=== PATIENT | female | born 1950 | race Caucasian/White ===

== ENCOUNTER 2017-06-07 14:58 | Outpatient (CLI) | payer BC ==
[~2017-06-07] VITALS: Ht 162.6 cm; Wt 70.3 kg
[2017-06-07 15:05] VITALS: BP 125/72
== END 2017-06-07 15:18 | disposition home or self-care (01) ==
LOC: PREOP 14:58
PROVIDERS: ATTEND Orthopaedic Surgery
DX: Z01.818 Encounter for other preprocedural examination (principal); M94.262 Chondromalacia, left knee
CPT/HCPCS: 87081

== ENCOUNTER 2017-06-12 08:08 | Day surgery (SDC) | payer BC ==
--- NOTE | 2017-06-05 09:18 | HISTORY AND PHYSICAL ---
DATE OF SERVICE: LAST- SOCIAL SECURITY: 2087 REASON FOR ADMISSION: This will be for outpatient surgery on 06/12/2017 for left knee arthroscopy. HISTORY OF PRESENT ILLNESS: The patient is a 66-year-old female with progressively worsening left knee pain. She reports pain anteriorly. She reports catching, locking, and swelling. She reports difficulty with stairs. She has undergone injections, which alleviated her pain symptoms temporarily. Due to functional impairment and failure to improve with conservative measures, the patient has elected to proceed with surgical intervention. REVIEW OF SYSTEMS: No chest pain, no shortness of breath, no dysuria. PAST MEDICAL HISTORY: Unremarkable. PAST SURGICAL HISTORY: Right knee arthroscopy. FAMILY HISTORY: Noncontributory. PRIMARY CARE PROVIDER: Dr. Alfonso. MEDICATIONS: Denies. ALLERGIES: No known drug allergies. SOCIAL HISTORY: The patient drinks alcohol socially. She denies tobacco use. PHYSICAL EXAMINATION: GENERAL: The patient is well-developed, well-nourished, in no acute distress. HEENT: Normocephalic, atraumatic. Pupils are equal, round and reactive to light. Oropharynx is clear. NECK: Supple. No lymphadenopathy. LUNGS: Clear to auscultation bilaterally. HEART: Regular rate and rhythm. ABDOMEN: Soft, nontender, nondistended. EXTREMITIES: The left knee demonstrates marked patellofemoral crepitus. She has large effusion. She has pain with patellar loading. She ambulates with an antalgic gait. Range of motion 0/0/135. 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 PLAN: Left knee arthroscopy and chondroplasty of the patellofemoral joint. The risks, benefits, options, ramifications and recovery have been discussed at length with the patient. She understands and wishes to proceed. Job ID: [id number] DocumentID: [id number] Dictated Date: 06/04/2017 11:56:29 Caustic Pump Operator Date: 06/04/2017 13:16:44 Dictated By: LULY MARTINEZ MD
[~2017-06-12] VITALS: Ht 162.6 cm; Wt 70.3 kg
[~2017-06-12 08:08] MED LIST: BUPIVACAINE 0.25% 30 ML (SENSORCAINE) VIAL ONE; morphine PF (DURAMORPH) 10 MG/10 ML AMP ONE
--- OUTSIDE RECORDS SUMMARY | 2017-06-12 08:12 | XMS REPORT | Clinical Summary ---
Author Author [facility] Organization [facility] Address Unknown Phone Unavailable Care Team Providers Care Office Electrician Name Role Phone PCP Unavailable Source Comments Some departments are not documenting in the electronic medical record. If you do not see the information that you expected, contact Release of Information in the Health Information Management department at [phone] for further assistance in locating additional records.[facility] Allergies Not on File Current Medications No known medications Active Problems No known active problems Family History Medical History Relation Name Comments Cancer Daughter Cancer Father Cancer Maternal Grandmother Heart Disease Mother Stroke Mother COPD Sister Depression Sister Relation Name Status Comments Daughter Father Maternal Grandmother Mother Sister Social History Tobacco Use Types Packs/Day Years Used Date Never Smoker Alcohol Use Drinks/Week oz/Week Comments Yes 0 Standard 2.4 - 3.0 drinks or equivalent 4-5 Glasses of wine Sex Assigned at Date Recorded Not on file Last Filed Vital Signs Vital Sign Reading Time Taken Blood Pressure 122/84 08/26/2015 2:52 PM TOASTER ELEMENT REPAIRER Pulse 80 08/26/2015 2:52 PM TOASTER ELEMENT REPAIRER Temperature 36.4 C (97.5 F) 08/26/2015 2:52 PM TOASTER ELEMENT REPAIRER Respiratory Rate 18 08/26/2015 2:52 PM TOASTER ELEMENT REPAIRER Oxygen Saturation - - Inhaled Oxygen - - Concentration Weight 66.7 kg (147 lb) 08/26/2015 2:52 PM TOASTER ELEMENT REPAIRER Height 162.6 cm (5' 4") 08/26/2015 2:52 PM TOASTER ELEMENT REPAIRER Body Mass Index 25.23 08/26/2015 2:52 PM TOASTER ELEMENT REPAIRER Plan of Treatment Health Maintenance Due Date Last Done Comments HEPATITIS C SCREENING 1950 PHYSICAL (COMPREHENSIVE) 1958 EXAM PERTUSSIS VACCINE 1962 TETANUS VACCINE 1968 BREAST CANCER SCREENING 05/10/2016 05/10/2015 (Previously completed) OSTEOPOROSIS SCREENING 2016 PREVNAR/PNEUMOVAX (#1) 2016 INFLUENZA VACCINE 06/23/2017 06/15/2015 (Previously completed) COLORECTAL CANCER 07/04/2021 07/04/2011 (Previously completed) SCREENING SHINGLES VACCINE Addressed 07/08/2014 (Previously completed) Overridden with the intention of not completing the topic Results Not on filefrom Last 3 Months
[2017-06-12] MEDS ORDERED: fentaNYL INJECTION 100 MCG/2 ML AMP ONE (08:17)
[2017-06-12] MEDS ORDERED: MIDAZOLAM 2 MG/2 ML (VERSED) VIAL ONE (08:17)
[2017-06-12] MEDS ORDERED: NS (IVPB) 50 ML ONE (08:55)
[2017-06-12] MEDS ORDERED: ceFAZolin 1,000 MG (ANCEF) VIAL ONE (08:55)
[2017-06-12] MEDS ORDERED: LACTATED RINGERS 1,000 ML IV PRN (08:57)
--- NOTE | 2017-06-12 09:11 | Progress Note-Pre Operative ---
Pre-Operative Progress Note H&P Reviewed The H&P was reviewed, patient examined and no changes noted. Date Seen by Provider: Jun 12, 2017 Time Seen by Provider: 09:10 Date H&P Reviewed: Jun 12, 2017 Time H&P Reviewed: 09:10 Pre-Operative Diagnosis: left knee chondromalacia of the patella and trochlea LULY MARTINEZ MD Jun 12, 2017 09:11
--- NOTE | 2017-06-12 09:13 | Progress Note-Post Operative ---
Post-Operative Progess Note Surgeon (s)/Pasteurizer Helper (s) Surgeon LULY MARTINEZ MD Pasteurizer Helper: Collins Stark Pre-Operative Diagnosis left knee chondromalacia of the patella and trochlea Post-Operative Diagnosis lef tknee chondromalacia of the patella, trochlea, medial femoral condyle, and lateral tibial and lateral meniscal tear Procedure & Operative Findings Date of Procedure 06/12/17 Procedure Performed/Findings left knee arthroscopic partial lateral meniscectomy, chondroplasty of the patella, trochlea, medial femoral condyle and lateral tibial plateau Anesthesia Type GETA Estimated Blood Loss Estimated blood loss (mL): minimal Specimens/Packing Specimens Removed none Packing: none LULY MARTINEZ MD Jun 12, 2017 09:13
[2017-06-12 09:16] VITALS: BP 134/73
[2017-06-12] MEDS ORDERED: HYDROcodone/APAP 7.5 MG/325 MG (LORTAB, LORCET PLUS) TABLET PO PRN (09:30)
[2017-06-12] MEDS ORDERED: proPOfol 200 MG/20 ML (DIPRIVAN) VIAL IV ONE (09:33)
[2017-06-12] MEDS ORDERED: ONDANSETRON 4 MG/2 ML (SDV) Z0FRAN ONE (09:33)
[2017-06-12] MEDS ORDERED: DEXAMETHASONE 10 MG/ML (DECADRON) 1 ML VIAL ONE (09:33)
[2017-06-12] MEDS ORDERED: LIDOCAINE PF 2% 5 ML (XYLOCAINE) VIAL ONE (09:33)
[2017-06-12] MEDS ORDERED: SEVOFLURANE (ULTANE) 15 ML INHAL SOLN ONE (09:33)
[2017-06-12] MEDS ORDERED: LACTATED RINGERS 1,000 ML IV ONE (09:33)
[2017-06-12] MEDS ORDERED: ONDANSETRON 4 MG/2 ML (SDV) Z0FRAN IVP PRN (10:15)
[2017-06-12] MEDS ORDERED: morphine INJ 10 MG/ML 1ML (SYR OR VIAL) IVP PRN (10:15)
[2017-06-12 11:00] VITALS: BP 143/79
[2017-06-12 11:30] VITALS: BP 147/81
[2017-06-12] MEDS ORDERED: HYDR-3816 PO (11:41)
[2017-06-12 12:00] VITALS: BP 143/79
--- NOTE | 2017-06-12 12:08 | Physical Therapy Ortho Eval ---
PT Orthopedic Evaluation Type of Surgery Knee Scope (left knee) Prior Level of Function Current Living Status: Spouse Locomotion (Upon Admit): Independent Established Durable Medical Eq: Crutches Subjective Subjective Pt was lying in bed with family in room. Pt reports 6/10 pain in left knee. Pt was lying in bed with nurse call, family in room post tx. Entry Into Home: Stairs With Railing Steps Into Home: 3 Objective Objective left knee extension 0 degrees, flexion 90 degrees Motor Control Motor Control: Motor Control WNL ROM ROM: WFL, except focal deficit Strength Strength: WFL Transfer Transfers (B, C, W/C) (FIM): 6 Gait Gait Assistive Device: Crutches Weight Bearing Restriction: Weight Bearing/Tolerated Location Restriction: L LE Gait (FIM): 2 Distance (FIM): 8=505-93 ft Distance: 75' Gait Level of Assist: 4 Summary/Comments Pt ambulates 75' with CGA for safety but appears steady with gait. Treatment Rendered Treatment: Therapeutic Exercises, Gait Train, Step Train, Reviewed Precautions , Use of Ice, Caregiver Instruction Exercise Instruction: Quad Sets, Heel Slides, Ankle Pumps Pt performed bed mobility and transfers with mod I. Pt has used crutches before and is able to ambulate 75' with CGA for safety and complete step x2. Pt was given verbal cues on crutch/foot sequencing. Pt completed supine exercises ( ankle pumps, quad sets, heel slides x10) and was advised to complete these exercises at home 2-3 times per day. Pt was educated on crutch use, weight- bearing status, and using ice on knee. Assessment/Goals Goal Time Frame: 1 Visit Understands HEP: Yes Safe Ambulation: Yes Plan Treatment Plan: Discharge Pt appears safe with mobility and gait and is discharged from physical therapy at this time. Treatment Duration: 1 visit PT/Family Agrees to Plan: Yes Time Time In: 1135 Time Out: 1155 Total Billed Treatment Time: 20 Billed Treatment Time 1 visit EVL 20' Yes PT/OT Therapy GCodes Therapy Functional Limitation: Physical Therapy Test(s)/Tool used to determine: Level of Assistance Scale Functional Limitation-Current Charge Code: MOBCUR Modifier: CI Functional Limitation-Goal Charge Code: MOBGOAL Modifier: CI Functional Limitation-D/C Charge Codes: MOBDC Modifier: CI SANA BARON PT Jun 12, 2017 12:08
--- NOTE | 2017-06-12 15:35 | OPERATIVE REPORT ---
DATE OF SERVICE: 06/12/2017 PREOPERATIVE DIAGNOSES: 1. Left knee chondromalacia of the patella. 2. Left knee chondromalacia of the trochlea. POSTOPERATIVE DIAGNOSES: 1. Left knee chondromalacia of the patella. 2. Left knee chondromalacia of the trochlea. 3. Left knee lateral meniscal tear. 4. Left knee chondromalacia of the medial femoral condyle. 5. Left knee chondromalacia of the lateral tibial plateau. PROCEDURES: 1. Left knee arthroscopic partial lateral meniscectomy. 2. Left knee arthroscopic chondroplasty of the patella. 3. Left knee arthroscopic chondroplasty of the trochlea. 4. Left knee arthroscopic chondroplasty of the medial femoral condyle. 5. Left knee arthroscopic chondroplasty of the lateral tibial plateau. SURGEON: Dr. Martinez. COOLER SUPERVISOR: Dr. Collins Stark who assisted through the procedure and closed the incisions. ANESTHESIA: General endotracheal by Karo Sarmiento CRNA. TOURNIQUET TIME: Not applicable. ESTIMATED BLOOD LOSS: Minimal. DRAINS: None. COMPLICATIONS: None. POSTOPERATIVE PLAN: Routine protocol. The patient was transferred to the recovery room awake and in stable condition. STATEMENT OF MEDICAL NECESSITY: The patient is a 66-year-old female with complaints of left anterior knee pain, catching, locking and swelling. She had undergone treatment with activity modifications, injections and rests without relief. Due to functional impairment and failure to improve with conservative measures, the patient elected to proceed with surgical intervention. Examination under anesthesia revealed range of motion 0/0/140 with negative Matthew, negative anterior and posterior drawer, negative pivot shift, no varus valgus laxity. Arthroscopic findings demonstrated grade IV chondral loss over the central portion of the patella in a 15 x 15 area. The trochlea demonstrated grade II chondral flaps superiorly in a 10 x 10 area. The medial and lateral gutters were clear. The medial compartment demonstrated no meniscal pathology; however, there was grade II chondral flap near the intercondylar notch in a 10 x 8 area. The ACL and PCL were intact. The lateral compartment demonstrated a degenerative tear of the body of the lateral meniscus involving approximately 20% of the body. In addition, there were grade II chondral flaps over the central portion of the tibial plateau in an 8 x 8 area. PROCEDURE: After the risks and benefits of the procedure were discussed, questions were answered and informed consent was signed and placed in the chart. The operative site was confirmed in the preoperative holding area and initialed by the surgeon. The patient was transported to the operating room and after adequate levels of general endotracheal anesthetic were obtained, a timeout was called confirming the operative site. The left lower extremity was prepped and draped in the usual sterile fashion. The knee was injected with 60 mL of fluid and standard inferior lateral portal was placed under direct visualization and an inferior medial portal was created. The menisci cruciate was carefully probed with the above findings noted. The unstable chondral flaps on the patella and trochlea were debrided with a shaver back to a stable edge. The scope was redirected into the medial compartment and unstable chondral flaps on the medial femoral condyle were debrided with a shaver back to a stable edge. The scope was then redirected into the lateral compartment and unstable chondral flaps in lateral tibial plateau. We debrided the shaver back to a stable edge and the body of the lateral meniscus was with a shaver back to a stable edge. This was carefully probed with no further tearing or instability noted. The knee was copiously irrigated and port sites were closed with 3-0 nylon in simple interrupted fashion. The knee was injected with Duramorph. The port sites were infiltrated with plain Marcaine and soft dressing was applied, and the patient was transported to the recovery room, awakened in stable condition. Job ID: [id number] DocumentID: [id number] Dictated Date: 06/12/2017 09:56:30 Meat Inspector Date: 06/12/2017 15:34:12 Dictated By: LULY MARTINEZ MD
== END 2017-06-12 12:10 | disposition home or self-care (01) ==
LOC: SDC 08:08
PROVIDERS: ATTEND Orthopaedic Surgery
DX: M22.42 Chondromalacia patellae, left knee; M23.262 Derangement of other lateral meniscus due to old tear or injury, left knee

== ENCOUNTER 2017-08-29 11:00 | Outpatient (CLI) | payer BC ==
--- NOTE | 2017-08-28 22:25 | HISTORY AND PHYSICAL ---
DATE OF SERVICE: COLONOSCOPY HISTORY AND PHYSICAL REPORT HISTORY OF PRESENT ILLNESS: The patient is a 67-year-old white female evaluated in the office for several medical issues on the 08/28. She has been getting over head and chest cold symptoms, is feeling better and has had return of a near normal hearing. She denies otalgia. She still has some mild sore throat symptoms, but there has been improvement in cough and she has been sleeping at night. She was not sure, but felt that Crestor 10 mg daily had been increasing lower extremity pain. She underwent arthroscopic left knee evaluation, I believe, had a meniscal tear repair with significant improvement in knee pain. She had laboratory evaluation done in May off of Crestor and her LDL was significantly elevated compared on medication levels noted at 188 with an HDL of 71 and a total cholesterol of 275. She has no known history of vascular disease. She underwent her first screening colonoscopy in 2007 at which time several hyperplastic polyps were removed. She is not aware of any family history for colon cancer. PAST MEDICAL HISTORY: She has no past history of cardiovascular or pulmonary disease and has no history of hypertension or diabetes. SOCIAL HISTORY: She is employed, working for the [employer] with no past smoking history. Occasional social alcohol intake. FAMILY HISTORY: Again, she is not aware of any family history for colon cancer. Father at the age of 75 secondary to heart disease as did her mother. She has 2 sisters and 1 brother in their 50s and 60s with no reported health problems. PHYSICAL EXAMINATION: GENERAL: Reveals a well appearing white female who does not appear to be in acute distress. VITAL SIGNS: Her blood pressure was 120/80 and weight 150. HEENT: Unremarkable. TMs are clear. No exudate. Ear canals were unremarkable, no cerumen noted. Oral cavity was clear, no erythema was noted. NECK: Revealed no JVD, adenopathy or bruits. CHEST: Clear. CARDIOVASCULAR: Regular rate and rhythm without murmur, S3 or S4. EXTREMITIES: Reveal no cyanosis, clubbing or edema. ASSESSMENT AND PLAN: 1. Resolving URI, the patient reassured. 2. Hyperlipidemia. We will resume a 5 mg of Crestor. If doing well with this, we will have to increase to 10 mg after one month with repeat wellness exam and lab evaluation in 6 months. 3. The patient is set up for screening colonoscopy on 08/30. Prep instructions with the Suprep kit were given and questions were answered. Job ID: [id number] DocumentID: [id number] Dictated Date: 08/28/2017 19:41:07 Greaser And Oiler Date: 08/28/2017 21:07:46 Dictated By: SHEILA LIZ MD
[~2017-08-29] VITALS: Ht 162.6 cm; Wt 70.3 kg
[~2017-08-29 11:00] MED LIST changes: -BUPIVACAINE 0.25% 30 ML (SENSORCAINE) VIAL ONE; +HYDR-3816 PO; -morphine PF (DURAMORPH) 10 MG/10 ML AMP ONE
== END 2017-08-29 12:40 ==
LOC: PREOP 11:00
PROVIDERS: ATTEND Internal Medicine
DX: Z01.818 Encounter for other preprocedural examination (principal); Z12.11 Encounter for screening for malignant neoplasm of colon

== ENCOUNTER 2017-08-30 07:39 | Day surgery (SDC) | payer BC ==
[~2017-08-30] VITALS: Ht 162.6 cm; Wt 70.3 kg
--- OUTSIDE RECORDS SUMMARY | 2017-08-30 07:43 | XMS REPORT | Clinical Summary ---
Author Author [facility] Organization [facility] Address Unknown Phone Unavailable Care Team Providers Care Sleep Lab Technician Name Role Phone PCP Unavailable Source Comments Some departments are not documenting in the electronic medical record. If you do not see the information that you expected, contact Release of Information in the Health Information Management department at [phone] for further assistance in locating additional records.[facility] Allergies Not on File Current Medications No [...] Taken Blood Pressure 122/84 08/26/2015 2:52 PM PLUMBING CONTRACTOR Pulse 80 08/26/2015 2:52 PM PLUMBING CONTRACTOR Temperature 36.4 C (97.5 F) 08/26/2015 2:52 PM PLUMBING CONTRACTOR Respiratory Rate 18 08/26/2015 2:52 PM PLUMBING CONTRACTOR Oxygen Saturation - - Inhaled Oxygen - - Concentration Weight 66.7 kg (147 lb) 08/26/2015 2:52 PM PLUMBING CONTRACTOR Height 162.6 cm (5' 4") 08/26/2015 2:52 PM PLUMBING CONTRACTOR Body Mass Index 25.23 08/26/2015 2:52 PM PLUMBING CONTRACTOR Plan of Treatment Health Maintenance Due Date Last Done Comments HEPATITIS C SCREENING 1951 PHYSICAL (COMPREHENSIVE) 1958 EXAM PERTUSSIS VACCINE 1962 TETANUS VACCINE 1968 BREAST CANCER SCREENING 05/10/2016 05/10/2015 (Previously completed) OSTEOPOROSIS SCREENING 2016 PREVNAR/PNEUMOVAX (#1) 2016 INFLUENZA VACCINE 04/23/2017 06/15/2015 (Previously completed) COLORECTAL CANCER 07/04/2021 07/04/2011 (Previously completed) SCREENING SHINGLES VACCINE Addressed 07/08/2014 (Previously completed) Overridden with the intention of not completing the topic Results Not on filefrom Last 3 Months
[2017-08-30] MEDS ORDERED: 1/2 NS IV SOLUTION 1,000 ML IV STA (07:50)
[2017-08-30] MEDS ORDERED: 1/2 NS IV SOLUTION 1,000 ML IV ONE (07:50)
[2017-08-30 07:59] VITALS: BP 111/69
[2017-08-30] MEDS ORDERED: MIDAZOLAM 2 MG/2 ML (VERSED) VIAL IVP PRN (08:00)
[2017-08-30] MEDS ORDERED: LIDOCAINE JELLY 2% (XYLOCAINE) 5 ML TUBE MM PRN (08:00)
--- NOTE | 2017-08-30 08:03 | Pre-Op Note & Conscious Sedat ---
Pre-Operative Progress Note H&P Reviewed The H&P was reviewed, patient examined and no changes noted. Date H&P Reviewed: Aug 30, 2017 Time H&P Reviewed: 08:03 Conscious Sedation Pre-Proced ASA Class: 2 Airway Mallampati Classification: ([place] appropriate class) I. II. III, IV Lungs Heart ASA score ASA 1: a normal healthy patient ASA 2: a patient with a mild systemic disease (mid diabetes, controlled hypertension, obesity ASA 3: a patient with a severe systemic disease that limits activity (angina , COPD, prior Myocardial infarction) ASA 4: a patient with an incapacitating disease that is a constant threat to life (CHF, renal failure) ASA 5: a moribund patient not expected to survive 24 hrs. (ruptured aneurysm) ASA 6: a declared brain patient whose organs are being harvested. For emergent operations, add the letter E after the classification Grade 2 Sedation Plan: Analgesia, Amnesia, Plan communicated to team members, Discussed options with patient/fam, Discussed risks with patient/fam Note The patient is an appropriate candidate to undergo the planned procedure, sedation, and anesthesia. The patient immediately re-assessed prior to indication. SHEILA LIZ MD Aug 30, 2017 08:03
[2017-08-30] MEDS ORDERED: LIDOCAINE JELLY 2% (XYLOCAINE) 5 ML TUBE ONE (08:29)
[2017-08-30] MEDS ORDERED: MIDAZOLAM 2 MG/2 ML (VERSED) VIAL ONE (08:29)
[2017-08-30] MEDS ORDERED: fentaNYL INJECTION 100 MCG/2 ML AMP ONE (08:29)
[2017-08-30] MEDS: fentaNYL INJECTION 100 MCG/2 ML AMP IVP PRN ×2 (08:35→08:37)
[2017-08-30 09:20] VITALS: BP 119/69
[2017-08-30 09:41] VITALS: BP 122/77
[2017-08-30 09:45] VITALS: BP 122/77
--- NOTE | 2017-08-30 13:47 | OPERATIVE REPORT ---
DATE OF SERVICE: COLONOSCOPY SUMMARY INDICATION FOR THE PROCEDURE: Screening colonoscopy. The patient was placed in the left lateral decubitus position. Prior to undergoing colonoscopy, digital rectal evaluation was performed. Anal sphincter tone was normal and the perianal reflexes intact. There is 1 prominent perianal skin fold will likely due to previous external hemorrhoids, but no evidence for bluish discoloration or palpable abnormality was noted. No abnormalities, no additional inspection of anal canal or distal rectal vault. The colonoscope was then inserted into the rectum under direct visualization advanced to the cecum. The cecum was identified by identification of the ileocecal valve and cecal strap. Photographic documentation was obtained. Careful inspection was made as the colonoscope was withdrawn. The patient tolerated the procedure well. FINDINGS: There was one prominent anal skin fold, but no evidence for active external hemorrhoid formation. One grade I complex of internal hemorrhoids were noted. Photograph was obtained. The remainder of the rectum was unremarkable. Scattered throughout the colon were a moderate number of small to medium size diverticulum. No associated inflammatory change was noted. There was some haustral hypertrophy involving the sigmoid colon. No other sigmoid colonic abnormalities. Other than scattered diverticula in the descending colon, splenic flexure, transverse colon, hepatic flexure, ascending colon and cecum were unremarkable with no evidence for neoplasia. ASSESSMENT: 1. Moderate diverticular disease scattered throughout the colon was noted without evidence for diverticulitis. 2. No evidence for neoplasia was identified. 3. One grade I internal hemorrhoid complex was noted and no blood was noted in the colon. As the patient reports no family history for colon cancer, we will advocate consideration for repeat screening colonoscopy in 10 years. Job ID: [id number] DocumentID: [id number] Dictated Date: 08/30/2017 09:17:54 Senior Software Development Manager Date: 08/30/2017 13:47:00 Dictated By: SHEILA LIZ MD [facility]
== END 2017-08-30 09:45 | disposition home or self-care (01) ==
LOC: ENDO 07:39
PROVIDERS: ATTEND Internal Medicine
DX: Z12.11 Encounter for screening for malignant neoplasm of colon (principal); K57.30 Diverticulosis of large intestine without perforation or abscess without bleeding; K64.0 First degree hemorrhoids; Z86.010 Personal history of colon polyps; E78.5 Hyperlipidemia, unspecified; Z79.899 Other long term (current) drug therapy

== ENCOUNTER → 2017-09-11 | Outpatient (CLI) | payer BC ==
--- NOTE | 2017-09-11 08:28 | Diagnostic Imaging Report ---
Bilateral screening mammogram 2D views with tomosynthesis The current study was also evaluated with a Computer Aided Detection (CAD) system. Indication: Screening. No current complaints stated on the questionnaire. COMPARISON: 09/03/2016 Findings: The breasts are composed of dense parenchyma which may decrease mammographic sensitivity. Benign-appearing calcifications are seen. Allowing for technique and positional differences, no suspicious change is seen. IMPRESSION: Dense breasts with no definite change. ACR BI-RADS Category 2: Benign findings. Result letter will be mailed to the patient. Note: At least 10% of breast cancer is not imaged by mammography. Dictated by: Dictated on workstation # [id number]
== END ==
LOC: RAD 07:29
PROVIDERS: ATTEND Internal Medicine
DX: Z12.31 Encounter for screening mammogram for malignant neoplasm of breast (principal)
CPT/HCPCS: 77067

== ENCOUNTER → 2018-10-28 | Outpatient (CLI) | payer BC ==
[~2018-10-28] MED LIST changes: +HYDR-34 PO; -HYDR-3816 PO
--- NOTE | 2018-10-28 13:10 | Diagnostic Imaging Report ---
INDICATION: Routine screening. COMPARISON: Comparison is made with prior exams from 09/11/2017 and 09/03/2016. TECHNIQUE: 2D and 3D bilateral screening mammography was performed with computer-aided detection (CAD) system. FINDINGS: Both breasts remain heterogeneously dense, limiting the sensitivity of mammography. Circumscribed nodular densities in both breasts appear stable. No spiculated mass or malignant-appearing microcalcifications are seen. There are benign calcifications bilaterally. Axillae are unremarkable. IMPRESSION: No mammographic features suspicious for malignancy are identified. ACR BI-RADS Category 2: Benign findings. Result letter will be mailed to the patient. Note: At least 10% of breast cancer is not imaged by mammography. Dictated by: Dictated on workstation # [id number]
== END ==
LOC: RAD 12:06
PROVIDERS: ATTEND Internal Medicine
DX: Z12.31 Encounter for screening mammogram for malignant neoplasm of breast (principal)
CPT/HCPCS: 77067

== ENCOUNTER → 2020-03-29 | Outpatient (CLI) | payer BC ==
--- NOTE | 2020-03-29 09:02 | Diagnostic Imaging Report ---
INDICATION: Postmenopausal female COMPARISON: None FINDINGS: AP Spine L2-L4: [BMD (g/cm2): 1.022] [T-Score: -1.5] [Z-Score: -0.1] [BMD Previous: na] [BMD % Change: na] LT Hip Neck: [BMD (g/cm2): 0.843] [T-Score: -1.4] [Z-Score: 0.0] LT Hip Total: [BMD (g/cm2):0.893] [T-Score:-0.9] [Z-Score: 0.3] [BMD Previous: na] [BMD % Change: na] RT Hip Neck: [BMD (g/cm2):0.805] [T-Score:-1.7] [Z-Score:-0.2] RT Hip Total: [BMD (g/cm2):0.867] [T-score:-1.1] [Z-Score:0.1] [BMD Previous:na] [BMD % Change:na] *Indicates significant change from prior examination based on 95% confidence level. World Health Organization criteria for BMD interpretation classify patients as Normal (T-score at or above -1.0), Osteopenic (T-score between -1.0 and -2.5) or Osteoporotic (T-score at or below -2.5). LIMITATIONS AND MODIFICATION: Degenerative change at L2 may falsely elevate bone density.. FRACTURE RISK (FRAX SCORE): The ten year probability of (%): Major Osteoporotic Fracture: [10.1] Hip Fracture: [1.5] IMPRESSION: 1. Osteopenia (Low bone mass). 2. Baseline examination. 3. See below National Osteoporosis Foundation guidelines on when to potentially initiate pharmacologic therapy. Based on the National Osteoporosis Foundation Guidelines, pharmacologic treatment should be initiated in any of the following, unless clinical conditions suggest otherwise: * Any patient with prior fragility fracture of the hip or vertebrae. A spine fracture indicates 5X risk for subsequent spine fracture and 2X risk for subsequent hip fracture. * Osteoporosis (T-score <-2.5). * Postmenopausal women and men age 50 and older with low bone mass/osteopenia (T-score between -1.0 and -2.5) by DXA and 10-year major osteoporotic fracture greater than 20% or a 10-year probability of hip fracture greater than 3%. These fracture risks are supplied above in the FRAX score, if applicable. * Clinician judgement and/or patient preferences may indicate treatment for people with 10-year fracture probabilities above or below these levels. Dictated by: Dictated on workstation # [id number]
--- NOTE | 2020-03-29 13:03 | Diagnostic Imaging Report ---
INDICATION: Routine screening. Comparison is made with prior mammogram from 10/28/2018 and 09/11/2017. 2-D and 3-D bilateral screening mammography was performed with CAD. Both breasts remain heterogeneously dense, limiting the sensitivity of mammography. Both breasts demonstrate a fibronodular parenchymal pattern. No spiculated mass or malignant appearing microcalcifications are seen. There are benign calcifications bilaterally. Axillae are unremarkable. IMPRESSION: BI-RADS Category 2 No mammographic features suspicious for malignancy are identified. ACR BI-RADS Category 2: Benign findings. Result letter will be mailed to the patient. Note: At least 10% of breast cancer is not imaged by mammography. Dictated by: Dictated on workstation # [id number]
== END ==
LOC: RAD 08:01
PROVIDERS: ATTEND Internal Medicine
DX: Z12.31 Encounter for screening mammogram for malignant neoplasm of breast (principal); M85.89 Other specified disorders of bone density and structure, multiple sites; Z78.0 Asymptomatic menopausal state
CPT/HCPCS: 77063; 77067; 77080

== ENCOUNTER 2020-09-28 05:34 | Outpatient (RCR) | payer BC ==
[~2020-09-28] VITALS: Ht 162.6 cm; Wt 72.7 kg
[~2020-09-28 05:34] MED LIST changes: +ESCI10TA PO; +ROSU20TA2 PO
== END 2020-09-28 10:18 | disposition home or self-care (01) ==
LOC: PREOP 05:34
PROVIDERS: ATTEND Specialist
DX: Z01.812 Encounter for preprocedural laboratory examination (principal); H25.11 Age-related nuclear cataract, right eye; Z20.822 Contact with and (suspected) exposure to COVID-19
CPT/HCPCS: 87635

== ENCOUNTER 2020-09-30 09:51 | Day surgery (SDC) | payer BC ==
[~2020-09-30] VITALS: Ht 162.6 cm; Wt 72.7 kg
[2020-09-30] MEDS ORDERED: MIDAZOLAM 2 MG/2 ML (VERSED) VIAL ONE (10:01)
[2020-09-30 10:15] VITALS: BP 132/77
[2020-09-30] MEDS ORDERED: POVIDONE (BETADINE) OPHTH SOLN 5% 30 ML OP ONE (10:15)
[2020-09-30] MEDS ORDERED: TIMOLOL MALEATE 0.5% 5 ML (TIMOPTIC) BTL OU PRN (10:15)
[2020-09-30] MEDS ORDERED: LIDOCAINE PF 1% 2 ML VIAL IR PRN (10:15)
[2020-09-30] MEDS ORDERED: MOXIFLOXACIN OPHTH SOLN 5 MG/ML 0.3 ML SYRINGE OP ONE (10:15)
[2020-09-30] MEDS: TETRACAINE 0.5% OPHTH SOLN 4 ML BTL (SINGLE DOSE ONLY) OU PRN ×4 (10:26→10:43)
--- NOTE | 2020-09-30 10:31 | Ophthalmologist Pre-Op Note ---
Pre-Operative Progress Note H&P Reviewed The H&P was reviewed, patient examined and no changes noted. Date H&P Reviewed: Sep 30, 2020 Time H&P Reviewed: 10:30 Pre-Op Dx Cataract, Right Eye JESSICA TANG MD Sep 30, 2020 10:31
[2020-09-30] MEDS: TROPICAMIDE 1% OPH SOLN (MYDRIACYL) 15 ML BTL OP SCH ×3 (10:35→10:43)
[2020-09-30] MEDS: PHENYLEPHRINE 10% OPHTH (NEO-SYN) 5 ML BTL OU SCH ×3 (10:35→10:43)
--- NOTE | 2020-09-30 11:02 | Ophthalmology Operative Report ---
Cataract removal/placement IOL PREOPERATIVE DIAGNOSIS: Cataract Right Eye POSTOPERATIVE DIAGNOSIS: Cataract Right Eye PROCEDURE: Cataract removal and placement of posterior chamber implant, right eye SURGEON: Gurmeet Tang ANESTHESIA: Topical with sedation COMPLICATIONS: None ESTIMATED BLOOD LOSS: Minimal DESCRIPTION OF PROCEDURE: After proper informed consent was obtained, the patient, a 70 female, was taken to the Operating Room and the right eye was anesthetized with tetracaine. The right eye was then prepped and draped in the usual manner. A wire lid speculum was placed. A paracentesis was made at the left hand position. Preservative free lidocaine was injected into the anterior chamber followed by viscoelastic. A clear corneal incision was made in the temporal position. A capsulorrhexis was preformed and the central nuclear and cortical material were removed. The posterior capsule was polished and Nino 19.0 AU00T0 IOL was placed into the capsular bag. The residual viscoelastic was aspirated and balanced saline solution was injected into the anterior chamber. Moxifloxacin was injected into the anterior chamber. The wound was checked and found to be water tight. The patient tolerated the procedure well without complications. GURMEET TANG MD Sep 30, 2020 11:02
[2020-09-30 11:15] VITALS: BP 127/76
--- NOTE | 2020-09-30 11:18 | Anesthesia-General Post-Op ---
MAC Patient Condition Mental Status/LOC: Same as Preop Cardiovascular: Satisfactory Nausea/Vomiting: Absent Respiratory: Satisfactory Pain: Controlled Complications: Absent Post Op Complications Complications None Follow Up Care/Instructions Patient Instructions None needed. Anesthesiology Discharge Order Discharge Order Patient is doing well, no complaints, stable vital signs, no apparent adverse anesthesia problems. No complications reported per nursing. OLIVIA MCDOWELL CRNA Sep 30, 2020 11:18
[2020-09-30] MEDS ORDERED: acetaZOLAMIDE ER 500 MG CAP (DIAMOX SEQUELS) PO ONE (11:30)
== END 2020-09-30 11:15 | disposition home or self-care (01) ==
LOC: SDC 09:51
PROVIDERS: ATTEND Specialist
DX: H25.11 Age-related nuclear cataract, right eye (principal); E78.00 Pure hypercholesterolemia, unspecified; Z79.899 Other long term (current) drug therapy; Z90.710 Acquired absence of both cervix and uterus
CPT/HCPCS: 66984; V2632

== ENCOUNTER → 2021-04-11 | Outpatient (CLI) | payer BC ==
--- NOTE | 2021-04-11 14:16 | Diagnostic Imaging Report ---
INDICATION: 2-D and 3-D digital screening with CAD. COMPARED: 03/2020, 10/2018 and 08/2017 FINDINGS: There is a heterogeneously dense parenchymal pattern which can limit mammographic sensitivity. A few benign type calcifications bilaterally showed no interval change. No dominant or suspicious breast mass. No spiculated lesion, architectural distortion. No suspicious appearing calcifications. IMPRESSION: Stable benign findings BI-RADS Category 2 ACR BI-RADS Category 2: Benign findings. Result letter will be mailed to the patient. Note: At least 10% of breast cancer is not imaged by mammography. Dictated by: Dictated on workstation # [id number]
== END ==
LOC: RAD 08:30
PROVIDERS: ATTEND Internal Medicine
DX: Z12.31 Encounter for screening mammogram for malignant neoplasm of breast (principal)
CPT/HCPCS: 77063; 77067

== ENCOUNTER → 2022-07-16 | Outpatient (CLI) | payer BC | LOC: CARD 15:00 | PROVIDERS: ATTEND Internal Medicine Cardiovascular Disease | DX: I10 Essential (primary) hypertension (principal) | CPT/HCPCS: 93306 ==

== ENCOUNTER 2022-10-23 05:31 | Outpatient (CLI) | payer BC ==
[~2022-10-23] VITALS: Ht 162.6 cm; Wt 72.7 kg
[2022-10-24] MEDS ORDERED: APIX5TAB PO (08:59)
== END 2022-10-24 09:22 | disposition home or self-care (01) ==
LOC: PREOP 05:31
PROVIDERS: ATTEND Specialist
DX: Z01.818 Encounter for other preprocedural examination (principal)

== ENCOUNTER 2022-10-26 10:20 | Day surgery (SDC) | payer BC ==
[~2022-10-26] VITALS: Ht 162.6 cm; Wt 72.7 kg
[~2022-10-26 10:20] MED LIST changes: +APIX5TAB PO
[2022-10-26] MEDS ORDERED: POVIDONE (BETADINE) OPHTH SOLN 5% 30 ML OP ONE (10:30)
[2022-10-26] MEDS ORDERED: TIMOLOL 0.5% (CATARACTS) 0.3 ML BTL OU PRN (10:30)
[2022-10-26] MEDS ORDERED: MOXIFLOXACIN OPHTH SOLN 5 MG/ML 0.3 ML SYRINGE OP ONE (10:30)
[2022-10-26] MEDS: TETRACAINE 0.5% OPHTH SOLN 4 ML BTL (SINGLE DOSE ONLY) OU PRN ×4 (10:31→10:49)
[2022-10-26] MEDS: PHENYLEPHRINE 10% OPHTH (NEO-SYN) 5 ML BTL OU SCH ×3 (10:37→10:50)
[2022-10-26] MEDS: TROPICAMIDE 1% OPH SOLN (MYDRIACYL) 15 ML BTL OP SCH ×3 (10:37→10:49)
[2022-10-26 10:44] VITALS: BP 126/76
--- NOTE | 2022-10-26 11:28 | Ophthalmologist Pre-Op Note ---
Pre-Operative Progress Note H&P Reviewed The H&P was reviewed, patient examined and no changes noted. Date H&P Reviewed: Oct 26, 2022 Time H&P Reviewed: 11:28 Pre-Op Dx Cataract, Left Eye JESSICA TANG MD Oct 26, 2022 11:28
[2022-10-26] MEDS ORDERED: MIDAZOLAM 2 MG/2 ML (VERSED) VIAL ONE (11:31)
--- NOTE | 2022-10-26 11:45 | Ophthalmology Operative Report ---
Cataract removal/placement IOL PREOPERATIVE DIAGNOSIS: Cataract Left Eye POSTOPERATIVE DIAGNOSIS: Cataract Left Eye PROCEDURE: Cataract removal and placement of posterior chamber implant, left eye SURGEON: Gurmeet Tang ANESTHESIA: Topical with sedation COMPLICATIONS: None ESTIMATED BLOOD LOSS: Minimal DESCRIPTION OF PROCEDURE: After proper informed consent was obtained, the patient, a 72 female, was taken to the Operating Room and the left eye was anesthetized with tetracaine. The left eye was then prepped and draped in the usual manner. A wire lid speculum was placed. A paracentesis was made at the left hand position. Preservative free lidocaine was injected into the anterior chamber followed by viscoelastic. A clear corneal incision was made in the temporal position. A capsulorrhexis was preformed and the central nuclear and cortical material were removed. The posterior capsule was polished and an Nino 19.5 AU00T0 was placed into the capsular bag. The residual viscoelastic was aspirated and balanced saline solution was injected into the anterior chamber. Moxifloxacin was injected into the anterior chamber. The wound was checked and found to be water tight. The patient tolerated the procedure well without complications. GURMEET TANG MD Oct 26, 2022 11:45
[2022-10-26 11:51] VITALS: BP 140/84
--- NOTE | 2022-10-26 12:16 | Anesthesia-General Post-Op ---
MAC Patient Condition Mental Status/LOC: Same as Preop Cardiovascular: Satisfactory Nausea/Vomiting: Absent Respiratory: Satisfactory Pain: Controlled Complications: Absent Post Op Complications Complications None Follow Up Care/Instructions Patient Instructions None needed. Anesthesiology Discharge Order Discharge Order Patient is doing well, no complaints, stable vital signs, no apparent adverse anesthesia problems. No complications reported per nursing. RIA TYSON CRNA Oct 26, 2022 12:16
[2022-10-26] MEDS ORDERED: acetaZOLAMIDE ER 500 MG CAP (DIAMOX SEQUELS) PO ONE (12:30)
== END 2022-10-26 11:55 | disposition home or self-care (01) ==
LOC: SDC 10:20
PROVIDERS: ATTEND Specialist
DX: H25.9 Unspecified age-related cataract (principal)
CPT/HCPCS: 66984; V2632

== ENCOUNTER → 2022-12-04 | Outpatient (CLI) | payer BC ==
--- NOTE | 2022-12-04 16:48 | Diagnostic Imaging Report ---
INDICATION: Routine screening. COMPARISON: 04/11/2021 and 03/29/2020. TECHNIQUE: 2D and 3D bilateral screening mammography was performed with CAD. FINDINGS: Both breasts are heterogeneously dense, limiting the sensitivity of mammography. Both breasts demonstrate a fibronodular parenchymal pattern. The pattern appears to be stable. No spiculated mass or malignant-appearing microcalcifications are seen. There are scattered benign calcifications bilaterally. The axillae are unremarkable. IMPRESSION: No mammographic features suspicious for malignancy are identified. ACR BI-RADS Category 2: Benign findings. Result letter will be mailed to the patient. Note: At least 10% of breast cancer is not imaged by mammography. Dictated by: Dictated on workstation # [id number]
== END ==
LOC: RAD 15:25
PROVIDERS: ATTEND Internal Medicine
DX: Z12.31 Encounter for screening mammogram for malignant neoplasm of breast (principal)
CPT/HCPCS: 77063; 77067